=== PATIENT | female | born 1975 | race Caucasian/White ===

== ENCOUNTER 2025-06-03 17:13 | Emergency (ER) | payer SELFPAY ==
[2025-06-03 17:16] VITALS: BP 113/81; PULSE 71; RESP 16; TEMP 36.7; O2SAT 92
--- NOTE | 2025-06-03 17:27 | W.ED.GENAD ---
Discharge Plan Disposition Patient Disposition: Home Condition: Improving Discharge Details Clinical Impression: Urticaria due to food allergy ED Provider: Bal Chavez Meds and New Rx's Prescriptions: New prednisone 10 mg tablet 10 mg PO DIRECTED Qty: 30 0RF Rx Instructions: see taper instructions 4 tab x 3 days, 3 tab x 3 days, 2 tab x 3 days, 1 tab x 3 days epinephrine [EpiPen 2-Juan Pablo] 0.3 mg/0.3 mL auto-injector 0.3 mg IM Q5-15M PRN (Reason: hypersensitivity reaction) Qty: 2 0RF Rx Instructions: do not exceed 3 doses per episode Continued venlafaxine 75 mg capsule,extended release 24hr 75 mg PO DAILY propranolol 10 mg tablet 5 mg PO TID PRN clonazepam [Klonopin] 1 mg tablet 1 mg PO DAILY PRN Discharge Instructions Instructions: Hives, Allergic Reaction ED Discharge Data Discharge Physician: Bal Chavez HPI General Date/Time Provider Initiated Documentation: 06/03/25 17:27. HPI Narrative: Patient presents emergency department stating 2 days ago developed hives all over her body took Benadryl which improved pressure. Time and the hives are back. 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 and ignores if she ate something similar but she comes here because she feels itchy all over and the hives are spreading all over her face or arms or torso and her legs Related Data Home Medications ?Medication ?Instructions ?Recorded ?Confirmed clonazepam 1 mg tablet (Klonopin) 1 mg PO DAILY PRN 06/03/25 06/03/25 epinephrine 0.3 mg/0.3 mL 0.3 mg (0.3 mL) IM Q5-15M PRN 06/03/25 injection, auto-injector (EpiPen hypersensitivity reaction #2 ea 2-Juan Pablo) prednisone 10 mg tablet 10 mg PO DIRECTED #30 tabs 06/03/25 propranolol 10 mg tablet 5 mg PO TID PRN 06/03/25 06/03/25 venlafaxine 75 mg capsule,extended 75 mg PO DAILY 06/03/25 06/03/25 release 24 hr Previous Rx's ?Medication ?Instructions ?Recorded epinephrine 0.3 mg/0.3 mL 0.3 mg (0.3 mL) IM Q5-15M PRN 06/03/25 injection, auto-injector (EpiPen hypersensitivity reaction #2 ea 2-Juan Pablo) prednisone 10 mg tablet 10 mg PO DIRECTED #30 tabs 06/03/25 Allergies Allergy/AdvReac Type Severity Reaction Status Date / Time kiwi Allergy Mild Skin Rash Verified 06/03/25 17:23 scallops Allergy Mild Skin Rash Verified 06/03/25 17:23 General Stated Complaint: Allergic JANET: 3 Review of Systems Narrative: Review of Systems: Constitutional: No fevers, chills, sweats Eye: No recent visual problems ENT: No ear pain, nasal congestion, sore throat Respiratory: No shortness of breath, cough Cardiovascular: No Chest pain, palpitations, syncope Gastrointestinal: No nausea, vomiting, diarrhea Genitourinary: No hematuria Prem/Lymph: Negative for bruising tendency, swollen lymph glands Endocrine: Negative for excessive thirst, excessive hunger Musculoskeletal: No back pain, neck pain, joint pain, muscle pain, decreased range of motion Neurologic: Alert & oriented X 4 Psychiatric: No anxiety, depression Exam Narrative Exam Narrative: Exam; vitals signs as reported above normal Constitutional; In no acute distress, afebrile General: cooperative, healthy appearing, comfortable and no acute distress HEENT: Head: normal to inspection, no palpable skull fracture and normocephalic atraumatic Eyes: : appearance normal, both eyes and all related structures EOM intact bilaterally Pupils: PERRL : conjunctiva normal Direct ophthalmoscopy: normal light reflex, normal conjunctiva, normal visual acuity Ears: Normal TM, normal external canal Nose: normal no rhinorreha Neck no JVD, supple non tender Neck: normal visual inspection, full ROM and no lymphadenopathy Chest: normal inspection of the chest Respiratory : normal respiratory effort and able to speak in complete sentences no wheezing no rales Cardio Rate: regular rate, rhythm: regular rhythm normal heart sounds S1 and S2 no murmurs, gallops, or rubs GI : normal to inspection, normal bowel sounds, soft, non tender, non distended, no organomegaly Back/Spine/ no CVA tenderness Thoracic/Lumbar Spine: no tenderness or deformities Skin urticarial rash all over her arms legs torso chest Neuro: patient alert oriented x 4 and no meningeal signs, Cranial Nerves: CN's II-XI intact bilaterally, Cognition: normal cognition, Speech: speech normal, Gait: normal gait, Depp tendon reflexes normal 2+ muscle strength 5/5 bilaterally Extremities, no edema, full range of motion, normal strength Course Vital Signs Vital signs: Vital Signs Temperature 36.7 C 06/03/25 17:16 Pulse 71 06/03/25 17:16 Respiratory Rate 16 06/03/25 17:16 Blood Pressure 113/81 06/03/25 17:16 Pulse Oximetry 92 06/03/25 17:16 Temperature 36.7 C 06/03/25 17:16 Temperature Source Oral 06/03/25 17:16 Pulse 71 06/03/25 17:16 Respiratory Rate 16 06/03/25 17:16 Blood Pressure 113/81 06/03/25 17:16 Pulse Oximetry 92 06/03/25 17:16 Oxygen Delivery Method Room Air 06/03/25 17:16 Oxygen Flow Rate 0 06/03/25 17:16 Pain Level 0 06/03/25 17:16 Medical Decision Making MDM: Summary: Patient presents emergency department with generalized hives all over and itching. She was given Solu-Medrol, famotidine, and Benadryl and then hours with complete resolution of all the urticarial rash. Patient will be discharged on a tapering dose of prednisone and have asked her to follow-up with an business education professor to see if she could get skin testing or food testing to see what is she allergic to. Also the patient will received an EpiPen to go home Data Review Analysis All the data on this patient was reviewed by me including laboratory and imaging studies as well as bedside studies performed by me Independent review of Studies Imaging Lab: Risk Stratification: Patient with a type I hypersensitivity reaction with urticaria that resolved will be discharged home at Differential Diagnosis: 1. Urticaria 2. Angioedema 3. Anaphylaxis 4. 5. Consultants: Shared disposition: Patient understands disposition agrees and will follow according Impression: Medical Records Medical records reviewed: Yes I reviewed the patient's medical records. PFSH All Active Problems (Updated 06/03/25 @ 18:54 by Bal Chavez MD) Urticaria due to food allergy (Acute) Social History Smoking risk assessment performed?: No
[2025-06-03] MEDS: methylPREDNISolone SUCC 125 MG VIAL IVP (18:01)
[2025-06-03] MEDS: Famotidine 20 MG/2 ML VIAL 40 MG IVP (18:02)
[2025-06-03] MEDS: diphenhydrAMINE 50 MG/ML VIAL 25 MG IVP (18:02)
[2025-06-03 18:54] VITALS: BP 102/80; RESP 16; O2SAT 98
== END 2025-06-03 19:02 | disposition home or self-care (01) ==
LOC: ER 19:27
PROVIDERS: Emergency Provider Emergency Medicine Emergency Medical Services; PCP Family Medicine
DX: L50.0 Allergic urticaria (principal)
CPT/HCPCS: 96374; 96375; 99284; 99283; J1200; J2919

== ENCOUNTER 2025-09-14 22:35 | Emergency (ER) | payer SELFPAY ==
[2025-09-14] VITALS (10 sets, daily range): BP systolic 133–155; BP diastolic 77–93; PULSE 56–65; RESP 13–19; TEMP 36.4; O2SAT 89–100
[2025-09-14 22:57] LABS: Abs Immature Grans 0.03 10^3/uL (0.0-0.06); HCT 36.0 % (36.0-46.0); HGB 11.8 g/dL (11.2-15.7); Immature Grans % 0.3 %; MCH 29.0 pg (27.0-33.0); MCHC 32.8 % (32.0-36.0); MCV 89 fL (80-95); MPV 9.1 fL (8.0-11.0); Platelet Count 228 10^3/uL (130-400); RBC 4.07 10^6/uL (3.93-5.22); RDW 13.7 % (11.7-14.6); RDW-SD 44.7 fL; WBC 10.15 10^3/uL (4.4-10.8)
[2025-09-14] MEDS: MORPHine 10 MG/ML VIAL 2 MG IVP (22:57)
[2025-09-14] MEDS: ACETAMINOPHEN 1,000 MG/100 ML BAG 400 MG IVPB (22:59)
[2025-09-14] MEDS: Normal Saline 1,000 ML 1000 ML IV (23:00)
[2025-09-14] MEDS: HYDROmorphone 2 MG/ML SYR 1 MG IVP (23:06)
[2025-09-14] MEDS: Metoclopramide 10 MG/2 ML VIAL IVP (23:07)
[2025-09-14 23:11] LABS: Lipase 36 U/L (<53)
[2025-09-14 23:13] LABS: ALT 15 U/L (10-49); AST 19 U/L (<34); Albumin 3.9 g/dL (3.2-5.0); Alkaline Phosphatase 62 U/L (46-116); Anion Gap 8.5 mmol/L (3-11); BUN 12 mg/dL (9-23); Bilirubin, Total 0.4 mg/dL (0.2-1.2); CO2 27.5 mmol/L (20.0-31.0); Calcium 8.4 mg/dL (8.3-10.6); Chloride 105 mmol/L (98-107); Glucose 126 mg/dL (74-106); Potassium 3.6 mmol/L (3.5-5.1); Sodium 141 mmol/L (136-145); Total Protein 6.8 g/dL (5.7-8.2)
--- NOTE | 2025-09-14 23:13 | W.ED.GENAD ---
Discharge Plan Disposition Patient Disposition: Transfer-Acute Inpatient Care Specific Acute Inpt Facility: [facility] Condition: Stable Discharge Details Clinical Impression: Intussusception, Intestinal obstruction Primary Care Provider: Ritu Charles ED Provider: Yosef Rose Home Meds and New Rx's Prescriptions: No Action venlafaxine 75 mg capsule,extended release 24hr 75 mg PO DAILY propranolol 10 mg tablet 5 mg PO TID PRN clonazepam [Klonopin] 1 mg tablet 1 mg PO DAILY PRN epinephrine [EpiPen 2-Juan Pablo] 0.3 mg/0.3 mL auto-injector 0.3 mg IM Q5-15M PRN (Reason: hypersensitivity reaction) Qty: 2 0RF Rx Instructions: do not exceed 3 doses per episode HPI General Date/Time Provider Initiated Documentation: 09/14/25 22:46. HPI Narrative: This is a pleasant 49-year-old female with a past medical history of gastric bypass surgery, hysterectomy, C-sections, appendectomy, previous kidney stones, who presents today via EMS for abdominal pain. At 3 PM patient began having sudden onset sharp achy and stabbing abdominal pain in the epigastric region, but also throughout her abdomen in general. She has had multiple episodes of nausea and vomiting. No diarrhea. No blood or hematemesis. No fever or chills. No tearing or ripping sensation. No pulsatile sensation. She denies any dysuria or urinary frequency. No other complaints at this time. No chest pain or shortness of breath. Related Data Home Medications ?Medication ?Instructions ?Recorded ?Confirmed clonazepam 1 mg tablet (Klonopin) 1 mg PO DAILY PRN 06/03/25 09/14/25 epinephrine 0.3 mg/0.3 mL 0.3 mg (0.3 mL) IM Q5-15M PRN 06/03/25 09/14/25 injection, auto-injector (EpiPen hypersensitivity reaction #2 ea 2-Juan Pablo) propranolol 10 mg tablet 5 mg PO TID PRN 06/03/25 09/14/25 venlafaxine 75 mg capsule,extended 75 mg PO DAILY 06/03/25 09/14/25 release 24 hr Previous Rx's ?Medication ?Instructions ?Recorded epinephrine 0.3 mg/0.3 mL 0.3 mg (0.3 mL) IM Q5-15M PRN 06/03/25 injection, auto-injector (EpiPen hypersensitivity reaction #2 ea 2-Juan Pablo) Allergies Allergy/AdvReac Type Severity Reaction Status Date / Time kiwi Allergy Mild Skin Rash Verified 09/14/25 23:01 scallops Allergy Mild Skin Rash Verified 09/14/25 23:01 General Stated Complaint: Abd Prob JANET: 3 Exam Narrative Exam Narrative: 1.Const: Well-nourished, Well-developed, appearing stated age 2.Eyes: PERRL, no conjunctival injection, and symmetrical lids. 3.ENT: Atraumatic external nose and ears. Moist MM. Neck: Symmetric, trachea midline, No thyromegaly. 4.CVS: +S1/S2, Peripheral pulses 2+ and equal in all extremities. Brisk capillary refill in all extremities. 5.RESP: Unlabored respiratory effort. Clear to auscultation bilaterally. No wheezes rales or rhonchi 6.GI: Soft, nondistended. Mild tenderness throughout the epigastric region, right upper quadrant, and then minimal tenderness throughout. No focal flank or CVA tenderness. 7.MSK: Normocephalic/Atraumatic, Extremities w/o deformity or ttp No cyanosis or clubbing, Normal movement of all extremities 8.Skin: Warm, Dry. No rashes or lesions. 9.Neuro: claim clinician II-XII grossly intact. Sensation grossly intact, no focal neurologic deficits. 10.Psych: (AAO) x3. Appropriate mood and affect Course Vital Signs Vital signs: Vital Signs Temperature 36.4 C L 09/14/25 22:29 Pulse 60 09/14/25 22:29 Respiratory Rate 18 09/14/25 22:29 Blood Pressure 149/78 H 09/14/25 22:29 Pulse Oximetry 93 09/14/25 22:29 Temperature 36.4 C L 09/14/25 22:29 Temperature Source Oral 09/14/25 22:29 Pulse 60 09/14/25 22:29 Respiratory Rate 18 09/14/25 22:29 Blood Pressure 149/78 H 09/14/25 22:29 Pulse Oximetry 93 09/14/25 22:29 Oxygen Delivery Method Room Air 09/14/25 22:29 Oxygen Flow Rate 0 09/14/25 22:29 Pain Level 10 09/14/25 22:29 Lab/Test Results Lab/Test Results: Laboratory Tests Range/Units 09/14/25 22:44 WBC (4.4-10.8) 10^3/uL 10.15 RBC (3.93-5.22) 10^6/uL 4.07 Hgb (11.2-15.7) g/dL 11.8 Hct (36.0-46.0) % 36.0 MCV (80-95) fL 89 MCH (27.0-33.0) pg 29.0 MCHC (32.0-36.0) % 32.8 RDW (11.7-14.6) % 13.7 Plt Count (130-400) 10^3/uL 228 MPV (8.0-11.0) fL 9.1 Immature Gran % % 0.3 Neutrophils % % 84.1 Lymphocytes % % 10.4 Monocytes % % 4.3 Eosinophils % % 0.3 Basophils % % 0.6 Nucleated RBC % (0.0-0.3) % 0.0 Absolute Neutrophils (1.2-6.7) 10^3/uL 8.53 H Absolute Lymphocytes (1.2-3.4) 10^3/uL 1.06 L Absolute Monocytes (0.1-0.8) 10^3/uL 0.44 Absolute Eosinophils (0.0-0.7) 10^3/uL 0.03 Absolute Basophils (0.0-0.2) 10^3/uL 0.06 Sodium (136-145) mmol/L 141 Potassium (3.5-5.1) mmol/L 3.6 Chloride (98-107) mmol/L 105 Carbon Dioxide (20.0-31.0) mmol/L 27.5 Anion Gap (3-11) mmol/L 8.5 BUN (9-23) mg/dL 12 Creatinine (0.55-1.02) mg/dL 0.70 Est GFR (CKD-EPI 2020) (mL/min/1.73m2) 89.42 Glucose (74-106) mg/dL 126 H Calcium (8.3-10.6) mg/dL 8.4 Total Bilirubin (0.2-1.2) mg/dL 0.4 AST (<34) U/L 19 ALT (10-49) U/L 15 Alkaline Phosphatase (46-116) U/L 62 Total Protein (5.7-8.2) g/dL 6.8 Albumin (3.2-5.0) g/dL 3.9 Lipase (<53) U/L 36 Medical Decision Making This is a pleasant 49-year-old female with a past medical history of gastric bypass surgery, hysterectomy, C-sections, appendectomy, previous kidney stones, who presents today via EMS for abdominal pain. At 3 PM patient began having sudden onset sharp achy and stabbing abdominal pain in the epigastric region, but also throughout her abdomen in general. She has had multiple episodes of nausea and vomiting. No diarrhea. No blood or hematemesis. No fever or chills. No tearing or ripping sensation. No pulsatile sensation. She denies any dysuria or urinary frequency. No other complaints at this time. No chest pain or shortness of breath. Exam demonstrates tenderness throughout the epigastric region, negative Vidal sign, no pain at McBurney's point, however generalized mild tenderness throughout on palpation. Differential includes cholecystitis, biliary colic, pancreatitis, kidney stone. Vital signs stable no tachycardia, no pulse asymmetry. No evidence to suggest AAA or dissection. No history of A-fib to suggest acute mesenteric ischemia. Will get CT imaging, rehydrate, treat her pain, monitor closely and reassess. 12:26 AM Laboratory workup shows no white count or bandemia, patient CT scan shows a proximal small bowel obstruction resulting from a retrograde intussusception involving fairly long length of jejunum including the jejunostomy site from the gastric bypass. Patient's gastric bypass was about 4 to 5 years ago at [facility]. I contacted our on-call surgeon here Dr. Seo, and because of the gastric bypass component, she recommends transfer to a center that has bariatric surgery. We will reach out to [facility]. 1:35 AM Discussed the case with Dr. Collado of [facility] bariatrics. She request the patient be transferred ED to ED for further surgical management. Transfer center requests that the patient arrive at or before 7 AM. Accepting physician is . Patient has had no further vomiting. Pain is being controlled by Dilaudid. Will hold on NG tube for the time being. Patient has been rehydrated. Patient will be sent to [facility] for further surgical intervention. I have extensively reviewed the treatment plan with the patient. I have addressed all patient concerns at this time. I have also discussed the plan with the admitting physician and they agree with the current assessment and plan and have agreed to assume responsibility for the patient. All parties demonstrate verbal understanding and agreement with our assessment and plan at this time. The documentation in this chart was dictated using [employer] dictation software. Please excuse any dictation errors. At time of transfer the patient was reassessed and continued to demonstrate No signs of acute respiratory distress requiring intubation, hemodynamic instability requiring pressor support, or rapidly declining mental status. FINDINGS: Liver: Normal. No mass. Gallbladder and biliary ducts: Normal. No calcified stones. No ductal dilation. Pancreas: Unremarkable. Spleen: Normal. Adrenal glands: Normal. No mass. Kidneys and ureters: Right renal cyst. Stomach and bowel: There is a proximal small bowel obstruction resulting from a retrograde intussusception involving a fairly long length of jejunum including the jejunojejunostomy site. There is fluid and contrast in the lumen of the intussuscipiens but no bowel wall thickening or inflammatory fat stranding to indicate strangulation Appendix: Normal appendix. Intraperitoneal space: No evidence of an internal hernia or closed loop obstruction. No pneumoperitoneum. Vasculature: Unremarkable. Lymph nodes: Unremarkable. Urinary bladder: Unremarkable as visualized. Reproductive: Unremarkable as visualized. Bones/joints: Unremarkable. No acute fracture. Soft tissues: Unremarkable. Other findings: No afferent loop syndrome. IMPRESSION: There is a proximal small bowel obstruction resulting from a retrograde intussusception involving a fairly long length of jejunum including the jejunojejunostomy site. There is fluid and contrast in the lumen of the intussuscipiens but no bowel wall thickening or inflammatory fat stranding to indicate strangulation. Thank you for allowing us to participate in the care of your patient. Dictated and Authenticated by: Rey Olivo MD 09/14/2025 11:54 PM Eastern Time ([place] & [place]) [facility] All Active Problems (Updated 09/15/25 @ 01:37 by Yosef Rose DO) Intestinal obstruction (Acute) Intussusception (Acute) Social History Smoking/Tobacco Use Status: Unknown Smoking risk assessment performed?: Yes Alcohol Intake: never
--- NOTE | 2025-09-14 23:27 | DI.CT_ITS ---
Exam(s) CT ABDOMEN PELVIS WO EXAM: CT ABDOMEN PELVIS WO CLINICAL HISTORY: epigastric and right flank pain. TECHNIQUE: Imaging Protocol: Axial computed tomography images with coronal and sagittal reformatted images were created and reviewed. COMPARISON: No exams were available for comparison FINDINGS: ABDOMEN: Lung Bases: Normal where visualized. Liver: Normal density. No measurable mass. Gallbladder and biliary tract: No radiodense calculus or biliary ductal dilation. Pancreas: Normal density, no abnormal calcifications or inflammatory process. Spleen: Normal. Kidneys: Normal size, contour and axis.1-2 mm stone in the midpole of the left kidney. There is no evidence of hydronephrosis. There is a cyst on the right kidney. No follow-up is recommended. Adrenal glands: No mass is seen. Lymph nodes: Within normal limits. Abdominal Aorta: Abdominal portion non-dilated. PELVIS: Bladder:Symmetric distention, no gross wall thickening. Bowel: There are diverticula seen in the colon without evidence of acute diverticulitis. The patient has had prior gastric bypass surgery. In the left abdomen, there findings most suggestive of a enteroenteric intussusception. There is mild dilatation of the small bowel proximally. The distal small bowel is of normal caliber. There is high density material seen within the small bowel which may be ingested material or contrast. No significant bowel wall thickening is seen. The stomach is of normal caliber. Peritoneal cavity: No ascites, collection or mesenteric inflammatory response. No free air. Reproductive organs: Patient appears to be status post hysterectomy. Bones: Within normal limits. Soft Tissues: Within normal limits. IMPRESSION: 1. Findings consistent with a an enteroenteric intussusception in the left abdomen. The findings result in the proximal small bowel obstruction. No definite evidence to suggest strangulation is seen at this time. 2. Status post gastric bypass surgery. 3. Colonic diverticulosis without evidence of acute diverticulitis. 4. The preliminary [facility] report was reviewed. RADIATION DOSE DELIVERED: 595.11mGy.cm Total DLP DATA REPOSITORY: All CT scans at this facility are submitted to the National Radiology Data Registry (NRDR) Dose Index Registry (DIR) with the [employer] ([employer]). RADIATION OPTIMIZATION: All CT scans at this facility use at least one of these dose optimization techniques: automated exposure control; mA and/or kV adjustment per patient size (includes targeted exams where dose is matched to clinical indication); or iterative reconstruction.
--- NOTE | 2025-09-14 23:54 | DI.[facility]_ITS ---
Addendum created by Rey Olivo MD on 09/14/2025 11:54:47 PM EST: Findings discussed with RYANN SLADE MD at time of interpretation. Initial report created on 09/14/2025 11:54:26 PM EST: PROCEDURE INFORMATION: Exam: CT Abdomen And Pelvis Without Contrast Exam date and time: 09/14/2025 11:08 PM Age: 49 years old Clinical indication: Abdominal pain; Other: Epigastric/right flank; Epigastric and right flank pain TECHNIQUE: Imaging protocol: Computed tomography of the abdomen and pelvis without contrast. Radiation optimization: All CT scans at this facility use at least one of these dose optimization techniques: automated exposure control; mA and/or kV adjustment per patient size (includes targeted exams where dose is matched to clinical indication); or iterative reconstruction. COMPARISON: No relevant prior studies available. FINDINGS: Liver: Normal. No mass. Gallbladder and biliary ducts: Normal. No calcified stones. No ductal dilation. Pancreas: Unremarkable. Spleen: Normal. Adrenal glands: Normal. No mass. Kidneys and ureters: Right renal cyst. Stomach and bowel: There is a proximal small bowel obstruction resulting from a retrograde intussusception involving a fairly long length of jejunum including the jejunojejunostomy site. There is fluid and contrast in the lumen of the intussuscipiens but no bowel wall thickening or inflammatory fat stranding to indicate strangulation. Appendix: Normal appendix. Intraperitoneal space: No evidence of an internal hernia or closed loop obstruction. No pneumoperitoneum. Vasculature: Unremarkable. Lymph nodes: Unremarkable. Urinary bladder: Unremarkable as visualized. Reproductive: Unremarkable as visualized. Bones/joints: Unremarkable. No acute fracture. Soft tissues: Unremarkable. Other findings: No afferent loop syndrome. IMPRESSION: There is a proximal small bowel obstruction resulting from a retrograde intussusception involving a fairly long length of jejunum including the jejunojejunostomy site. There is fluid and contrast in the lumen of the intussuscipiens but no bowel wall thickening or inflammatory fat stranding to indicate strangulation. Dictated and Authenticated by: Rey Olivo MD. Orderin Milton Navas MD
[2025-09-15] VITALS (28 sets, daily range): BP systolic 113–148; BP diastolic 54–93; PULSE 58–92; O2SAT 93–99
[2025-09-15 00:14] LABS: Glucose Negative (Negative)
[2025-09-15 00:25] LABS: WBC Negative HPF (0-5)
[2025-09-15 00:26] LABS: C & S Indicated? No
[2025-09-15] MEDS: HYDROmorphone 2 MG/ML SYR 1 MG IVP (01:30)
[2025-09-15] MEDS: MORPHine 10 MG/ML VIAL 2 MG IVP ×2 (01:45→03:37)
== END 2025-09-15 04:08 | disposition short-term general hospital (02) ==
PROVIDERS: Emergency Provider Student in an Organized Health Care Education/Training Program; PCP Family Medicine
DX: K56.1 Intussusception (principal); R11.2 Nausea with vomiting, unspecified; R10.13 Epigastric pain; K56.609 Unspecified intestinal obstruction, unspecified as to partial versus complete obstruction
CPT/HCPCS: 80053; 83690; 96361; 96374; 96375; 96376; 99285; 74176; 81003; 81015; 85025; J0131; J1171; J2270; J2765